=== PATIENT | male | born 1975 | race Caucasian/White ===

== ENCOUNTER 2016-10-09 10:46 | Observation (INO) | payer OTHER, SELFPAY ==
[2016-10-09 10:55] VITALS: BMI 24.4
[2016-10-09] MEDS ORDERED: Morphine 2 mg/ml ISec IVP STA (11:09)
[2016-10-09 11:18] LABS: ADD MANUAL DIFF? NO
[2016-10-09 11:33] LABS: BASO # 0.03 K/mm3 (0.0-2.0); BASO % 0.4 % (0.0-3.0); EOS % 0.2 % (1.5-5.0); GRAN % 74.5 % (50.0-68.0); HEMATOCRIT 41.5 % (42.0-52.0); LYMPH # 1.6 (1.2-3.4); MEAN CORPUSCULAR HEMOGLOBIN 30.8 pg (25.0-35.0); MEAN CORPUSCULAR HGB CONC 35.4 g/dl (31.0-37.0); MEAN PLATELET VOLUME 9.5 fl (7.0-11.0); MONO # 0.5 (0.1-0.6); MONO % 5.9 % (1.0-6.0); PLATELET COUNT 283 10^3/uL (120.0-450.0); RED CELL DISTRIBUTION WIDTH 12.9 % (11.5-14.5); WHITE BLOOD COUNT 8.3 10^3/ul (4.5-11.0)
[2016-10-09 11:37] LABS: ALB/GLOB RATIO 1.2 (1.1-1.8); ALKALINE PHOSPHATASE 90 U/L (38-133); ALT/SGPT 49 U/L (7-56); AST/SGOT 41 U/L (15-59); BILIRUBIN,TOTAL 0.8 mg/dL (0.2-1.3); BLOOD UREA NITROGEN 19 mg/dL (7-21); CALCIUM 9.2 mg/dL (8.4-10.5); CARBON DIOXIDE 23 mmol/L (21-33); CHLORIDE 104 mmol/L (98-107); GFR AFRICAN-AMERICAN > 60; GLUCOSE,RANDOM 119 mg/dL (70-110); LIPASE 35 U/L (23-300); MAGNESIUM 2.2 mg/dL (1.7-2.2); POTASSIUM 3.8 mmol/L (3.6-5.0); SODIUM 141 mmol/L (132-148); TOTAL PROTEIN 7.6 g/dL (5.8-8.3)
[2016-10-09 11:47] LABS: INR 0.97 (0.93-1.08); PARTIAL THROMBOPLASTIN TIME 26.1 Seconds (23.7-30.8)
[2016-10-09 11:59] LABS: TROPONIN I < 0.01 ng/mL
--- NOTE | 2016-10-09 12:02 | ED PDOC ---
Arrival/HPI - General Chief Complaint: Palpitations Time Seen by Provider: 10/09/16 11:01 Historian: Patient - History of Present Illness Narrative History of Present Illness (Text): 10/09/16 13:11 Satya Sanchez is a 41 year old male who presents to the emergency department complaining of non radiating chest pain since last night following alcohol and cocaine use. Describes quality as a squeezing sensation to the left chest. Patient also reports of epigastric abdominal pain associated with multiple bouts of hematemesis with clots. Patient states he has not been able to tolerate PO intake. Denies fever, chills, headache, dizziness, shortness of breath, diarrhea, urinary symptoms or any other complaints at this time. Time/Duration: Other (last night ) Symptom Onset: Gradual Severity Level: Mild Activities at Onset: Light Past Medical History - Provider Review Nursing Documentation Reviewed: Yes - Infectious Disease Hx of Infectious Diseases: None - Tetanus Immunization Tetanus Immunization: Unknown - Past Medical History Past Medical History: No Previous - Psychiatric Hx Depression: No Hx Emotional Abuse: No Hx Physical Abuse: No Hx Substance Use: Yes (cocaine) - Past Surgical History Past Surgical History: No Previous - Surgical History Other/Comment: Rt. Shoulder and abdominal - Suicidal Assessment Feels Threatened In Home Enviroment: No Family/Social History - Physician Review Nursing Documentation Reviewed: Yes Family/Social History: No Known Family HX Smoking Status: Unknown If Ever Smoked Hx Alcohol Use: Yes Frequency of alcohol use: Few days per week Hx Substance Use: Yes (cocaine) Hx Substance Use Treatment: No Allergies/Home Meds Allergies/Adverse Reactions: Allergies No Known Allergies Allergy (Verified 10/09/16 10:55) Home Medications: Home Meds Medication Instructions Recorded Confirmed No Known Home Med 10/09/16 10/09/16 Review of Systems - Physician Review All systems were reviewed & negative as marked: Yes - Review of Systems Constitutional: Normal. absent: Fatigue, Fevers Respiratory: absent: SOB, Cough, Sputum Cardiovascular: Chest Pain Gastrointestinal: Abdominal Pain (epigastric pain ), Nausea, Vomiting, Hematemesis. absent: Diarrhea Genitourinary Male: Normal. absent: Dysuria Musculoskeletal: Normal Neurological: Normal. absent: Headache, Dizziness Psychiatric: Normal Physical Exam Vital Signs Reviewed: Yes Vital Signs Temp Pulse Resp BP Pulse Ox 10/09/16 13:37 98.6 F 76 18 133/75 97 10/09/16 12:59 97 H 18 130/64 95 10/09/16 10:47 99 F 89 18 114/74 97 Temperature: Afebrile Blood Pressure: Normal Pulse: Regular Respiratory Rate: Normal Appearance: Positive for: Comfortable Pain Distress: None Mental Status: Positive for: Alert and Oriented X 3 - Systems Exam Head: Present: Atraumatic, Normocephalic Pupils: Present: PERRL Conjunctiva: Present: Normal Respiratory/Chest: Present: Clear to Auscultation, Good Air Exchange. No: Respiratory Distress, Accessory Muscle Use Cardiovascular: Present: Regular Rate and Rhythm, Normal S1, S2. No: Murmurs Abdomen: Present: Tenderness (epigastric tenderness ), Normal Bowel Sounds. No : Distention, Peritoneal Signs, Rebound, Guarding Upper Extremity: Present: Normal Inspection. No: Cyanosis, Edema Lower Extremity: Present: Normal Inspection. No: Edema Neurological: Present: GCS=15, CN II-XII Intact, Speech Normal Skin: Present: Warm, Dry, Normal Color. No: Rashes Psychiatric: Present: Alert, Oriented x 3, Normal Insight, Normal Concentration Medical Decision Making ED Course and Treatment: 10/09/16 12:02 Impression: A 41 year old male who presents to the emergency department complaining of chest pain and hematemesis s/p cocaine and alcohol use last night. Differential Diagnosis include but are not limited to: cocaine associated chest pain. Plan: -- EKG -- Labs -- Drug screen -- Morphine -- Zofran -- Protonix -- Urinalysis -- Reassess and disposition Progress Notes: 10/09/16 12:03 EKG interpreted by me: NSR @ 85 bpm. Normal [place]. Normal Interval. Chest X-ray interpreted by me: No acute findings. Patient improved with Morphine IV and Protonix IV. I discussed case with Dr. Plummer who will admit patient to the hospitalist service under observation. - Lab Interpretations Lab Results: 10/09/16 11:17 10/09/16 11:17 Lab Results 10/09/16 11:17: Sodium 141, Potassium 3.8, Chloride 104, Carbon Dioxide 23, Anion Gap 18, BUN 19, Creatinine 1.0, Est GFR ( Amer) > 60, Est GFR (Non- Af Amer) > 60, Random Glucose 119 H, Calcium 9.2, Magnesium 2.2, Total Bilirubin 0.8, AST 41, ALT 49, Alkaline Phosphatase 90, Lactate Dehydrogenase 512, Total Creatine Kinase 227, Troponin I < 0.01, Total Protein 7.6, Albumin 4.1, Globulin 3.5, Albumin/Globulin Ratio 1.2, Lipase 35 10/09/16 11:17: PT 10.5, INR 0.97, APTT 26.1 10/09/16 11:17: WBC 8.3, RBC 4.77, Hgb 14.7, Hct 41.5 L, MCV 87.0, MCH 30.8, MCHC 35.4, RDW 12.9, Plt Count 283, MPV 9.5, Gran % 74.5 H, Lymph % (Auto) 19.0 L, [place] % (Auto) 5.9, Eos % (Auto) 0.2 L, Baso % (Auto) 0.4, Gran # 6.20, Lymph # 1.6, [place] # 0.5, Eos # 0.0, Baso # 0.03 I have reviewed the lab results: Yes Interpretation: All labs normal - RAD Interpretation Radiology Orders: 10/09/16 11:09 CHEST PORTABLE [RAD] Stat Director Digital: ED Physician - EKG Interpretation Interpreted by ED Physician: Yes Type: 12 lead EKG - Medication Orders Current Medication Orders: Multivitamins/Vitamin C 10 ml/Thiamine HCl 100 mg/ Folic Acid 1 mg/ Sodium Chloride 1,011.2 mls @ 100 mls/hr IV .Q10H7M ONE Stop: 10/09/16 23:05 Lorazepam (Ativan) 1 mg IVP Q4H PRN; Protocol PRN Reason: Anxiety Ondansetron HCl (Zofran Inj) 4 mg IVP Q4H PRN PRN Reason: Nausea/Vomiting Pantoprazole Sodium (Protonix Inj) 40 mg IVP Q12 DAI Discontinued Medications Morphine Sulfate (Morphine) 2 mg IVP STAT STA Stop: 10/09/16 11:10 Last Admin: 10/09/16 11:18 Dose: 2 mg Ondansetron HCl (Zofran Inj) 4 mg IVP STAT STA Stop: 10/09/16 11:11 Last Admin: 10/09/16 11:18 Dose: 4 mg Pantoprazole Sodium (Protonix Inj) 80 mg IVP STAT STA Stop: 10/09/16 11:11 Last Admin: 10/09/16 11:18 Dose: 80 mg - Eliseibe Statement The provider has reviewed the documentation as recorded by the Tigre Navarro Provider Attestation: All medical record entries made by the Tigre were at my direction and personally dictated by me. I have reviewed the chart and agree that the record accurately reflects my personal performance of the history, physical exam, medical decision making, and the department course for this patient. I have also personally directed, reviewed, and agree with the discharge instructions and disposition. Disposition/Present on Arrival - Present on Arrival Any Indicators Present on Arrival: No History of DVT/PE: No History of Uncontrolled Diabetes: No Urinary Catheter: No History of Decub. Ulcer: No History Surgical Site Infection Following: None - Disposition Have Diagnosis and Disposition been Completed?: Yes Diagnosis: GI bleed, Cocaine abuse, Alcohol abuse, Chest pain Disposition: HOSPITALIZED Disposition Time: 12:43 Patient Plan: Observation Condition: FAIR
[2016-10-09] MEDS ORDERED: Multivitamin (MVI) 10 ML, Thiamine 100 MG, Folic Acid 1 MG in Sodium Chloride 0.9% 1,00... IV ONE (12:59)
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
--- NOTE | 2016-10-09 16:04 | RAD ---
HISTORY: chest pain COMPARISON: Comparison chest 03/27/2013. GoNo prior. FINDINGS: LUNGS: No active pulmonary disease. PLEURA: No significant pleural effusion identified, no pneumothorax apparent. CARDIOVASCULAR: Normal. OSSEOUS STRUCTURES: No significant abnormalities. VISUALIZED UPPER ABDOMEN: Normal. OTHER FINDINGS: None. IMPRESSION: No active disease.
--- NOTE | 2016-10-09 18:42 | CON ---
DATE: 10/09/2016 REASON FOR CONSULTATION: Chest pain. HISTORY OF PRESENT ILLNESS: The patient is a 41-year-old male who is a smoker, drinker and admitted to cocaine abuse. He presents because of chest discomfort as well as nasal bleeding from th e left nostril. The patient did also report vomiting with blood earlier. The patient is unaware of any prior cardiac history. MEDICATIONS: Ativan 1 mg intravenously q. 4 hours p.r.n., multivitamin infusion, Protonix 40 mg intr avenous twice a day and Zofran 4 mg intravenously q. 4 hours p.r.n. PHYSICAL EXAMINATION: GENERAL: The patient is a middle-aged male who does not appear to be in any distress. VITAL SIGNS: Blood pressure 133/75, heart rate 76, temperature 98.6, respiration 18. HEENT: Normocephalic. NECK: No JVD. CHEST: Clear. HEART: S1, S2 regular. ABDOMEN: Soft. EXTREMITIES: No edema. LABORATORY DATA: PT, PTT within normal limits. Hemoglobin and hematocrit 14.7 and 41.5, platelet co unt and white count are within normal limits. Alcohol level is 108. SMA-7 is within normal limits, except for glucose of 119. First troponin is negative. EKG revealed sinus rhythm. ASSESSMENT: 1. Chest pain, rule out myocardial infarction. 2. Rule out cocaine abuse. 3. Alcohol intoxication. 4. Epistaxis and possible gastrointestinal bleeding. RECOMMENDATIONS: Case was discussed with Dr. Washburn. Continue IV vitamin infusion, IV Protonix a nd p.r.n. IV Zofran. I will follow, repeat EKG and troponin, and obtain an echocardiogram. Shaheen Velez MD cc: [id number] TT: 10/09/2016 18:42:18 Confirmation # [id number] Dictation # [id number] julian
[2016-10-10 08:30] LABS: ADD MANUAL DIFF? NO
[2016-10-10 08:40] LABS: BASO # 0.03 K/mm3 (0.0-2.0); BASO % 0.4 % (0.0-3.0); EOS # 0.1 (0.0-0.7); EOS % 1.4 % (1.5-5.0); GRAN # 5.08 (1.4-6.5); GRAN % 66.1 % (50.0-68.0); LYMPH # 1.8 (1.2-3.4); LYMPH % 23.1 % (22.0-35.0); MEAN CELL VOLUME 87.1 fL (80.0-105.0); MEAN CORPUSCULAR HEMOGLOBIN 31.3 pg (25.0-35.0); MEAN PLATELET VOLUME 9.7 fl (7.0-11.0); MONO # 0.7 (0.1-0.6); PLATELET COUNT 243 10^3/uL (120.0-450.0); RED CELL DISTRIBUTION WIDTH 12.8 % (11.5-14.5); WHITE BLOOD COUNT 7.7 10^3/ul (4.5-11.0)
[2016-10-10 09:04] LABS: ALB/GLOB RATIO 1.1 (1.1-1.8); ALKALINE PHOSPHATASE 94 U/L (38-133); ALT/SGPT 53 U/L (7-56); AST/SGOT 35 U/L (15-59); BILIRUBIN,TOTAL 1.3 mg/dL (0.2-1.3); BLOOD UREA NITROGEN 16 mg/dL (7-21); CARBON DIOXIDE 27 mmol/L (21-33); CHLORIDE 100 mmol/L (98-107); CHOLESTEROL 199 mg/dL (130-200); GFR AFRICAN-AMERICAN > 60; GLUCOSE,RANDOM 93 mg/dL (70-110); MAGNESIUM 2.1 mg/dL (1.7-2.2); PHOSPHOROUS 3.1 mg/dL (2.5-4.5); SODIUM 138 mmol/L (132-148); TOTAL PROTEIN 7.4 g/dL (5.8-8.3)
--- NOTE | 2016-10-10 09:51 | CP.PCM.PN ---
<Lupe Pedraza - Last Filed: 10/10/16 10:41> Subjective - Date & Time of Evaluation Date of Evaluation: 10/10/16 Time of Evaluation: 09:46 - Subjective Subjective: Hospitalist Progress Note Patient seen and examined at bedside. There were no acute overnight events. He reports feeling much better today. He denies n/v/d, chest pain, SOB, pain, dysuria or hematuria. Objective - Vital Signs/Intake and Output Vital Signs (last 24 hours): Temp Pulse Resp BP Pulse Ox 98.3 F 69 19 131/97 H 97 10/10/16 05:50 10/10/16 05:50 10/10/16 05:50 10/10/16 05:50 10/10/16 05:50 Intake and Output: 10/10/16 10/10/16 06:59 18:59 Intake Total 720 Balance 720 - Medications Medications: Current Medications Lorazepam (Ativan) 1 mg IVP Q4H PRN; Protocol PRN Reason: Anxiety Last Admin: 10/09/16 21:09 Dose: 1 mg Ondansetron HCl (Zofran Inj) 4 mg IVP Q4H PRN PRN Reason: Nausea/Vomiting Pantoprazole Sodium (Protonix Inj) 40 mg IVP Q12 DAI Last Admin: 10/10/16 09:25 Dose: 40 mg - Labs Labs: 10/10/16 06:30 10/10/16 07:00 PT 10.5 Seconds (9.9-11.8) 10/09/16 11:17 INR 0.97 (0.93-1.08) 10/09/16 11:17 APTT 26.1 Seconds (23.7-30.8) 10/09/16 11:17 - Constitutional Appears: No Acute Distress - Head Exam Head Exam: ATRAUMATIC, NORMAL INSPECTION, NORMOCEPHALIC - Eye Exam Eye Exam: Normal appearance, PERRL Pupil Exam: NORMAL ACCOMODATION - ENT Exam ENT Exam: Mucous Membranes Moist - Respiratory Exam Respiratory Exam: Clear to Ausculation Bilateral, Wheezes, NORMAL BREATHING PATTERN. absent: Rales, Rhonchi, Stridor - Cardiovascular Exam Cardiovascular Exam: REGULAR RHYTHM, +S1, +S2. absent: Gallop, Rubs - GI/Abdominal Exam GI & Abdominal Exam: Soft, Normal Bowel Sounds. absent: Rigid, Tenderness, Mass , Rebound - Extremities Exam Extremities Exam: Normal Inspection. absent: Calf Tenderness, Pedal Edema - Neurological Exam Neurological Exam: Alert, Awake, CN II-XII Intact, Oriented x3 - Psychiatric Exam Psychiatric exam: Normal Affect, Normal Mood - Skin Skin Exam: Dry, Intact, Normal Color, Warm Assessment and Plan - Assessment and Plan (Free Text) Assessment: This is a 41Y M with no PMH admitted for chest pain and hematemesis. Plan: 1. Chest pain r/o ACS - UDS pending - Trop neg x 3 - TSH normal - Lipid panel showed mildly elevated triglyceride - Echo pending - Cardiology Consulted 2. Hematemesis - Hgb stable (15) - GI consulted- will do EGD in AM - NPO@ midnight - Continue protonix and zofran prn 3. EtOH abuse - Ativan prn - CIWA protocol - Seizure precaution - Aspiration precaution GI ppx: Protonix DVT ppx: SCDs Dispo: Plan for d/c after EGD depending on results Case seen, reviewed and discussed with attending. Rose Pedraza PGY1 <Fernanda Washburn - Last Filed: 10/10/16 13:59> Objective - Vital Signs/Intake and Output Vital Signs (last 24 hours): Temp Pulse Resp BP Pulse Ox 98.1 F 61 16 123/82 97 10/10/16 12:00 10/10/16 12:00 10/10/16 12:00 10/10/16 12:00 10/10/16 05:50 Intake and Output: 10/10/16 10/10/16 06:59 18:59 Intake Total 720 Balance 720 - Medications Medications: Current Medications Lorazepam (Ativan) 1 mg IVP Q4H PRN; Protocol PRN Reason: Anxiety Last Admin: 10/09/16 21:09 Dose: 1 mg Ondansetron HCl (Zofran Inj) 4 mg IVP Q4H PRN PRN Reason: Nausea/Vomiting Pantoprazole Sodium (Protonix Inj) 40 mg IVP Q12 DAI Last Admin: 10/10/16 09:25 Dose: 40 mg - Labs Labs: 10/10/16 06:30 10/10/16 07:00 PT 10.5 Seconds (9.9-11.8) 10/09/16 11:17 INR 0.97 (0.93-1.08) 10/09/16 11:17 APTT 26.1 Seconds (23.7-30.8) 10/09/16 11:17 Attending/Attestation - Attestation I have personally seen and examined this patient.: Yes I have fully participated in the care of the patient.: Yes I have reviewed all pertinent clinical information, including history, physical exam and plan: Yes Notes (Text): 10/10/16 13:43 attending note; Patient seen and examined with resident in ER bed 4. Patient is a 41-year-old male with a past medical history of alcohol abuse, cocaine use is admitted with chest pain and palpitation. Patient with history of alcohol abuse. Cessation is strongly advised. Cardiac enzymes 3 negative. H&H stable. GI/cardiology evaluation appreciated. on clear liquid diet. npo past midnight for EGD tomorrow. continue protonix. Complete alcohol cessation is advised. cocaine abuse cessation is strongly advised. Upon discharge the patient will follow-up with [facility] clinic. 10/10/16 13:55 10/10/16 13:59
--- NOTE | 2016-10-10 11:21 | CARD ---
APPROVED REPORT EKG Measurement Heart [id number] <Conclusion> Normal sinus rhythm Normal ECG
[2016-10-10 11:25] LABS: URINE APPEARANCE CLEAR (CLEAR); URINE BILIRUBIN NEGATIVE (NEGATIVE); URINE BLOOD NEGATIVE (NEGATIVE); URINE COLOR YELLOW (YELLOW); URINE GLUCOSE (UA) NEGATIVE (NEGATIVE); URINE KETONE 15 mg/dL (NEGATIVE); URINE LEUKOCYTE ESTERASE NEGATIVE Leu/uL (NEGATIVE); URINE PROTEIN NEGATIVE mg/dL (<30 mg/dL)
--- NOTE | 2016-10-10 13:42 | PN ---
DATE: 10/10/2016 The patient is awake, alert, ate breakfast without issues. No more chest pain noted. PHYSICAL EXAMINATION: VITAL SIGNS: Blood pressure is 131/97, heart rate is in the 80s, normal sinus rhythm. The patient i s afebrile. NECK: Negative JVD. LUNGS: Without rales. HEART: Revealed S1, S2. EXTREMITIES: Without edema. LABORATORIES: Reveals a urine that is positive for cocaine. Hemoglobin is 15. Chemistries: Tropon ins are negative x 3. EKG shows no acute changes. IMPRESSION: 1. Atypical chest pain, which is now resolved. 2. Cocaine abuse. 3. Alcohol abuse. 4. Epistaxis. Given these findings, there is no evidence for acute coronary syndrome. No arrhythmias noted. I have discussed with the patient about the need to stop his substance abuse. We will discontinue te lemetry today. No further cardiac workup. Will sign off on the case today. Guillermo Fisher MD cc: [id number] TT: 10/10/2016 13:42:05 Confirmation # [id number] Dictation # [id number] en
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
--- NOTE | 2016-10-11 01:39 | CON ---
DATE: 10/10/2016 ADDENDUM: This is an addendum to the GI consultation report dictated by Tania Deshpande. Discussed also with Dr. Washburn. HISTORY OF PRESENT ILLNESS: The patient has a history of Cocaine, history of ETOH abuse. The patient did have episodes of vomiting including an episode of coffee ground material. PHYSICAL EXAMINATION: ABDOMEN: Soft. There is minimal tenderness in the epigastric area. Labs reviewed. The patient is scheduled for upper GI endoscopy in the a.m. Monitor for results. Thank you very much for allowing us to participate in the care of this patient. Wily Plummer MD cc: [id number] TT: 10/11/2016 01:39:10 Confirmation # [id number] Dictation # [id number] julian DAVIS
[2016-10-11 06:24] VITALS: O2SAT 98
[2016-10-11 06:58] LABS: ADD MANUAL DIFF? NO
[2016-10-11 07:00] LABS: BASO # 0.04 K/mm3 (0.0-2.0); BASO % 0.6 % (0.0-3.0); EOS # 0.1 (0.0-0.7); EOS % 2.2 % (1.5-5.0); GRAN # 3.61 (1.4-6.5); GRAN % 56.6 % (50.0-68.0); HEMATOCRIT 44.4 % (42.0-52.0); LYMPH # 2.1 (1.2-3.4); LYMPH % 32.1 % (22.0-35.0); MEAN CELL VOLUME 86.4 fL (80.0-105.0); MEAN CORPUSCULAR HEMOGLOBIN 31.3 pg (25.0-35.0); MEAN CORPUSCULAR HGB CONC 36.3 g/dl (31.0-37.0); MEAN PLATELET VOLUME 9.7 fl (7.0-11.0); MONO # 0.5 (0.1-0.6); MONO % 8.5 % (1.0-6.0); PLATELET COUNT 254 10^3/uL (120.0-450.0); RED CELL DISTRIBUTION WIDTH 12.6 % (11.5-14.5); WHITE BLOOD COUNT 6.4 10^3/ul (4.5-11.0)
[2016-10-11 07:25] LABS: ALKALINE PHOSPHATASE 83 U/L (38-133); ALT/SGPT 48 U/L (7-56); AST/SGOT 40 U/L (15-59); BILIRUBIN,TOTAL 1.4 mg/dL (0.2-1.3); BLOOD UREA NITROGEN 13 mg/dL (7-21); CALCIUM 9.2 mg/dL (8.4-10.5); CARBON DIOXIDE 25 mmol/L (21-33); CHLORIDE 102 mmol/L (98-107); GFR AFRICAN-AMERICAN > 60; GLUCOSE,RANDOM 76 mg/dL (70-110); POTASSIUM 4.5 mmol/L (3.6-5.0); SODIUM 137 mmol/L (132-148); TOTAL PROTEIN 7.8 g/dL (5.8-8.3)
--- NOTE | 2016-10-11 09:47 | CP.PCM.DIS ---
<KeilaLupe - Last Filed: 10/11/16 12:51> Provider - Provider Date of Admission: 10/09/16 12:49 Attending physician: Fernanda Washburn MD Consults: Cardio: Phillip GI: Elian Time Spent in preparation of Discharge (in minutes): 35 Hospital Course - Lab Results Lab Results: Most Recent Lab Values WBC 6.4 10^3/ul (4.5-11.0) 10/11/16 06:45 RBC 5.14 10^6/uL (3.5-6.1) 10/11/16 06:45 Hgb 16.1 gm/dL (14.0-18.0) 10/11/16 06:45 Hct 44.4 % (42.0-52.0) 10/11/16 06:45 MCV 86.4 fL (80.0-105.0) 10/11/16 06:45 MCH 31.3 pg (25.0-35.0) 10/11/16 06:45 MCHC 36.3 g/dl (31.0-37.0) 10/11/16 06:45 RDW 12.6 % (11.5-14.5) 10/11/16 06:45 Plt Count 254 10^3/uL (120.0-450.0) 10/11/16 06:45 MPV 9.7 fl (7.0-11.0) 10/11/16 06:45 Gran % 56.6 % (50.0-68.0) 10/11/16 06:45 Lymph % (Auto) 32.1 % (22.0-35.0) 10/11/16 06:45 Lynn % (Auto) 8.5 % (1.0-6.0) H 10/11/16 06:45 Eos % (Auto) 2.2 % (1.5-5.0) 10/11/16 06:45 Baso % (Auto) 0.6 % (0.0-3.0) 10/11/16 06:45 Gran # 3.61 (1.4-6.5) 10/11/16 06:45 Lymph # 2.1 (1.2-3.4) 10/11/16 06:45 Lynn # 0.5 (0.1-0.6) 10/11/16 06:45 Eos # 0.1 (0.0-0.7) 10/11/16 06:45 Baso # 0.04 K/mm3 (0.0-2.0) 10/11/16 06:45 PT 10.5 Seconds (9.9-11.8) 10/09/16 11:17 INR 0.97 (0.93-1.08) 10/09/16 11:17 APTT 26.1 Seconds (23.7-30.8) 10/09/16 11:17 Sodium 137 mmol/L (132-148) 10/11/16 06:45 Potassium 4.5 mmol/L (3.6-5.0) 10/11/16 06:45 Chloride 102 mmol/L (98-107) 10/11/16 06:45 Carbon Dioxide 25 mmol/L (21-33) 10/11/16 06:45 Anion Gap 15 (10-20) 10/11/16 06:45 BUN 13 mg/dL (7-21) 10/11/16 06:45 Creatinine 1.0 mg/dL (0.5-1.4) 10/11/16 06:45 Est GFR ( Amer) > 60 10/11/16 06:45 Est GFR (Non-Af Amer) > 60 10/11/16 06:45 Random Glucose 76 mg/dL (70-110) 10/11/16 06:45 Hemoglobin A1c 5.0 % (4.2-6.5) 10/10/16 07:00 Calcium 9.2 mg/dL (8.4-10.5) 10/11/16 06:45 Phosphorus 3.1 mg/dL (2.5-4.5) 10/10/16 07:00 Magnesium 2.1 mg/dL (1.7-2.2) 10/10/16 07:00 Total Bilirubin 1.4 mg/dL (0.2-1.3) H 10/11/16 06:45 AST 40 U/L (15-59) 10/11/16 06:45 ALT 48 U/L (7-56) 10/11/16 06:45 Alkaline Phosphatase 83 U/L (38-133) 10/11/16 06:45 Lactate Dehydrogenase 512 U/L (333-699) 10/09/16 11:17 Total Creatine Kinase 227 U/L (35-230) 10/09/16 11:17 Troponin I < 0.01 ng/mL 10/10/16 00:45 Total Protein 7.8 g/dL (5.8-8.3) 10/11/16 06:45 Albumin 3.9 g/dL (3.0-4.8) 10/11/16 06:45 Globulin 4.0 gm/dL 10/11/16 06:45 Albumin/Globulin Ratio 1.0 (1.1-1.8) L 10/11/16 06:45 Triglycerides 167 mg/dL (35-160) H 10/10/16 07:00 Cholesterol 199 mg/dL (130-200) 10/10/16 07:00 LDL Cholesterol Direct 119 mg/dL (0-129) 10/10/16 07:00 HDL Cholesterol 36 mg/dL (29-60) 10/10/16 07:00 Lipase 35 U/L (23-300) 10/09/16 11:17 TSH 3rd Generation 2.32 mIU/mL (0.46-4.68) 10/10/16 07:00 Urine Color Yellow (YELLOW) 10/10/16 10:30 Urine Appearance Clear (CLEAR) 10/10/16 10:30 Urine pH 8.0 (4.7-8.0) 10/10/16 10:30 Ur Specific [place] 1.015 (1.005-1.035) 10/10/16 10:30 Urine Protein Negative mg/dL (<30 mg/dL) 10/10/16 10:30 Urine Glucose (UA) Negative mg/dL (NEGATIVE) 10/10/16 10:30 Urine Ketones 15 mg/dL (NEGATIVE) H 10/10/16 10:30 Urine Blood Negative (NEGATIVE) 10/10/16 10:30 Urine Nitrate Negative (NEGATIVE) 10/10/16 10:30 Urine Bilirubin Negative (NEGATIVE) 10/10/16 10:30 Urine Urobilinogen 2.0 E.U./dL (<1 E.U./dL) H 10/10/16 10:30 Ur Leukocyte Esterase Negative Dewayne/uL (NEGATIVE) 10/10/16 10:30 Urine Opiates Screen Negative (NEGATIVE) 10/10/16 10:30 Urine Methadone Screen Negative (NEGATIVE) 10/10/16 10:30 Ur Barbiturates Screen Negative (NEGATIVE) 10/10/16 10:30 Ur Phencyclidine Scrn Negative (NEGATIVE) 10/10/16 10:30 Ur Amphetamines Screen Negative (NEGATIVE) 10/10/16 10:30 U Benzodiazepines Scrn Negative (NEGATIVE) 10/10/16 10:30 U Oth Cocaine Metabols Positive (NEGATIVE) H 10/10/16 10:30 U Cannabinoids Screen Negative (NEGATIVE) 10/10/16 10:30 Alcohol, Quantitative 108 mg/dL (0-10) H 10/09/16 13:17 Blood Type A POSITIVE 10/09/16 14:06 Blood Type Confirm A POSITIVE 10/09/16 15:30 Antibody Screen Negative 10/09/16 14:06 BBK History Checked No verified bt 10/09/16 14:06 - Hospital Course Hospital Course: This is a 41y male with no PMH who was admitted for chest pain secondary to cocaine and alcohol use. Cardiology was consulted. Patient had negative troponin x 3 and his chest pain resolved. Echo was done. Report is still pending and will call patient when results are in. The patient also reported having hematemesis upon admission. His Hgb was normal and stable throughout stay. He did not have any episodes of nausea or vomiting since admission. GI was consulted. An EGD was done which showed chronic gastritis and duodenitis. The patient will be discharged home with Protonix 40mg x 10 days as well as a multivitamin for 10 days. He was counseled on drug and alcohol cessation. He will follow up in 1 week with [facility] outpatient clinic. - Date & Time of H&P Date of H&P: 10/09/16 Time of H&P: 14:30 Discharge Exam - Head Exam Head Exam: ATRAUMATIC, NORMAL INSPECTION, NORMOCEPHALIC - Eye Exam Eye Exam: Normal appearance Pupil Exam: NORMAL ACCOMODATION - ENT Exam ENT Exam: Mucous Membranes Moist - Respiratory Exam Respiratory Exam: Clear to PA & Lateral, NORMAL BREATHING PATTERN, UNREMARKABLE. absent: Rales, Rhonchi, Wheezes - Cardiovascular Exam Cardiovascular Exam: REGULAR RHYTHM, +S1, +S2. absent: Gallop, Rubs, Systolic Murmur - GI/Abdominal Exam GI & Abdominal Exam: Normal Bowel Sounds, Soft, Unremarkable. absent: Mass, Rebound, Rigid, Tenderness - Extremities Exam Extremities exam: normal inspection - Neurological Exam Neurological exam: Alert, CN II-XII Intact, Oriented x3 - Psychiatric Exam Psychiatric exam: Normal Affect, Normal Mood - Skin Skin Exam: Dry, Intact, Normal Color, Warm Discharge Plan - Discharge Medications Prescriptions: Mv-Min/Folic/Vit K/Lycop/Coq10 [Daily Multivitamin Capsule] 1 each PO DAILY #10 capsule Pantoprazole Sodium [Protonix] 40 mg PO DAILY #10 ect - Follow Up Plan Condition: FAIR Disposition: HOME/ ROUTINE Instructions: Chest Pain (DC), Gastritis (DC), Cocaine Abuse (DC), Upper Endoscopy (DC) Additional Instructions: 1. Please follow up with [facility] Outpatient Clinic on MondayOctober 18 at 9am. 2. Will inform patient of Echocardiogram results once they are in. 3. Protonix 40mg given for 10 days for gastritis. 4. Please take multivitamin daily for 10 days. Patient can get more multivitamin over the counter. Clinical Quality Measures - Date & Time of Discharge Summary Date of Discharge Summary: 10/11/16 Time of Discharge Summary: 12:53 <Fernanda Washburn - Last Filed: 10/12/16 15:49> Provider - Provider Date of Admission: 10/09/16 12:49 Attending physician: Fernanda Washburn MD Hospital Course - Lab Results Lab Results: Most Recent Lab Values WBC 6.4 10^3/ul (4.5-11.0) 10/11/16 06:45 RBC 5.14 10^6/uL (3.5-6.1) 10/11/16 06:45 Hgb 16.1 gm/dL (14.0-18.0) 10/11/16 06:45 Hct 44.4 % (42.0-52.0) 10/11/16 06:45 MCV 86.4 fL (80.0-105.0) 10/11/16 06:45 MCH 31.3 pg (25.0-35.0) 10/11/16 06:45 MCHC 36.3 g/dl (31.0-37.0) 10/11/16 06:45 RDW 12.6 % (11.5-14.5) 10/11/16 06:45 Plt Count 254 10^3/uL (120.0-450.0) 10/11/16 06:45 MPV 9.7 fl (7.0-11.0) 10/11/16 06:45 Gran % 56.6 % (50.0-68.0) 10/11/16 06:45 Lymph % (Auto) 32.1 % (22.0-35.0) 10/11/16 06:45 Lynn % (Auto) 8.5 % (1.0-6.0) H 10/11/16 06:45 Eos % (Auto) 2.2 % (1.5-5.0) 10/11/16 06:45 Baso % (Auto) 0.6 % (0.0-3.0) 10/11/16 06:45 Gran # 3.61 (1.4-6.5) 10/11/16 06:45 Lymph # 2.1 (1.2-3.4) 10/11/16 06:45 Lynn # 0.5 (0.1-0.6) 10/11/16 06:45 Eos # 0.1 (0.0-0.7) 10/11/16 06:45 Baso # 0.04 K/mm3 (0.0-2.0) 10/11/16 06:45 PT 10.5 Seconds (9.9-11.8) 10/09/16 11:17 INR 0.97 (0.93-1.08) 10/09/16 11:17 APTT 26.1 Seconds (23.7-30.8) 10/09/16 11:17 Sodium 137 mmol/L (132-148) 10/11/16 06:45 Potassium 4.5 mmol/L (3.6-5.0) 10/11/16 06:45 Chloride 102 mmol/L (98-107) 10/11/16 06:45 Carbon Dioxide 25 mmol/L (21-33) 10/11/16 06:45 Anion Gap 15 (10-20) 10/11/16 06:45 BUN 13 mg/dL (7-21) 10/11/16 06:45 Creatinine 1.0 mg/dL (0.5-1.4) 10/11/16 06:45 Est GFR ( Amer) > 60 10/11/16 06:45 Est GFR (Non-Af Amer) > 60 10/11/16 06:45 Random Glucose 76 mg/dL (70-110) 10/11/16 06:45 Hemoglobin A1c 5.0 % (4.2-6.5) 10/10/16 07:00 Calcium 9.2 mg/dL (8.4-10.5) 10/11/16 06:45 Phosphorus 3.1 mg/dL (2.5-4.5) 10/10/16 07:00 Magnesium 2.1 mg/dL (1.7-2.2) 10/10/16 07:00 Total Bilirubin 1.4 mg/dL (0.2-1.3) H 10/11/16 06:45 AST 40 U/L (15-59) 10/11/16 06:45 ALT 48 U/L (7-56) 10/11/16 06:45 Alkaline Phosphatase 83 U/L (38-133) 10/11/16 06:45 Lactate Dehydrogenase 512 U/L (333-699) 10/09/16 11:17 Total Creatine Kinase 227 U/L (35-230) 10/09/16 11:17 Troponin I < 0.01 ng/mL 10/10/16 00:45 Total Protein 7.8 g/dL (5.8-8.3) 10/11/16 06:45 Albumin 3.9 g/dL (3.0-4.8) 10/11/16 06:45 Globulin 4.0 gm/dL 10/11/16 06:45 Albumin/Globulin Ratio 1.0 (1.1-1.8) L 10/11/16 06:45 Triglycerides 167 mg/dL (35-160) H 10/10/16 07:00 Cholesterol 199 mg/dL (130-200) 10/10/16 07:00 LDL Cholesterol Direct 119 mg/dL (0-129) 10/10/16 07:00 HDL Cholesterol 36 mg/dL (29-60) 10/10/16 07:00 Lipase 35 U/L (23-300) 10/09/16 11:17 TSH 3rd Generation 2.32 mIU/mL (0.46-4.68) 10/10/16 07:00 Urine Color Yellow (YELLOW) 10/10/16 10:30 Urine Appearance Clear (CLEAR) 10/10/16 10:30 Urine pH 8.0 (4.7-8.0) 10/10/16 10:30 Ur Specific [place] 1.015 (1.005-1.035) 10/10/16 10:30 Urine Protein Negative mg/dL (<30 mg/dL) 10/10/16 10:30 Urine Glucose (UA) Negative mg/dL (NEGATIVE) 10/10/16 10:30 Urine Ketones 15 mg/dL (NEGATIVE) H 10/10/16 10:30 Urine Blood Negative (NEGATIVE) 10/10/16 10:30 Urine Nitrate Negative (NEGATIVE) 10/10/16 10:30 Urine Bilirubin Negative (NEGATIVE) 10/10/16 10:30 Urine Urobilinogen 2.0 E.U./dL (<1 E.U./dL) H 10/10/16 10:30 Ur Leukocyte Esterase Negative Dewayne/uL (NEGATIVE) 10/10/16 10:30 Urine Opiates Screen Negative (NEGATIVE) 10/10/16 10:30 Urine Methadone Screen Negative (NEGATIVE) 10/10/16 10:30 Ur Barbiturates Screen Negative (NEGATIVE) 10/10/16 10:30 Ur Phencyclidine Scrn Negative (NEGATIVE) 10/10/16 10:30 Ur Amphetamines Screen Negative (NEGATIVE) 10/10/16 10:30 U Benzodiazepines Scrn Negative (NEGATIVE) 10/10/16 10:30 U Oth Cocaine Metabols Positive (NEGATIVE) H 10/10/16 10:30 U Cannabinoids Screen Negative (NEGATIVE) 10/10/16 10:30 Alcohol, Quantitative 108 mg/dL (0-10) H 10/09/16 13:17 Blood Type A POSITIVE 10/09/16 14:06 Blood Type Confirm A POSITIVE 10/09/16 15:30 Antibody Screen Negative 10/09/16 14:06 BBK History Checked No verified bt 10/09/16 14:06 Attending/Attestation - Attestation I have personally seen and examined this patient.: Yes I have fully participated in the care of the patient.: Yes I have reviewed all pertinent clinical information, including history, physical exam and plan: Yes Notes (Text): 10/12/16 15:48 attending note; Patient seen and examined with resident. Patient is a 41-year-old male with a past medical history of alcohol abuse, cocaine use is admitted with chest pain and palpitation. Patient with history of alcohol abuse. Cessation is strongly advised. Cardiac enzymes 3 negative. H&H stable. GI/cardiology evaluation appreciated. s/p EGD today. EGD showed gastritis and duodenitis. continue po protonix. Complete alcohol cessation is advised. cocaine abuse cessation is strongly advised. Upon discharge the patient will follow-up with [facility] clinic.
[2016-10-11 11:14] VITALS: TEMP 98.2
[2016-10-11] MEDS ORDERED: Sodium Chloride 0.9% 1,000 ML IV SCH (11:30)
[2016-10-11] MEDS ORDERED: Propofol 10 mg/ml Inj (20 ML) ONE (11:39)
[2016-10-11 12:25] VITALS: RESP 16
[2016-10-11 12:39] VITALS: BP 111/70
[2016-10-11 16:27] VITALS: PULSE 65
--- NOTE | 2016-10-11 20:02 | CARD ---
APPROVED REPORT EXAM: Two-dimensional and M-mode echocardiogram with Doppler and color Doppler. INDICATION Chest Pain 2D DIMENSIONS Left Atrium (2D)2.9 (1.6-4.0cm)IVSd0.9 (0.7-1.1cm) LVDd4.3 (3.9-5.9cm)PWd0.8 (0.7-1.1cm) LVDs3.1 (2.5-4.0cm)FS (%) 28.5 % LVEF (%)55.2 (>50%) M-Mode DIMENSIONS Aortic Root2.80 (2.2-3.7cm)Aortic Cusp Exc.1.70 (1.5-2.0cm) Aortic Valve AoV Peak Qqchuyth197.0cm/Nieves Peak GR.8mmHg Mitral Valve MV E Udzxfjwl93.1cm/sMV A Szvypoag73.4cm/sE/A ratio1.5 TDI E/Lateral E'0.0E/Medial E'0.0 Tricuspid Valve TR Peak Lztzdnyg888li/sRAP [id number] Peak Gr.7mmHg [id number] LEFT VENTRICLE The left ventricle is normal size. There is normal left ventricular wall thickness. The left ventricular function is normal. The left ventricular ejection fraction is within the normal range. There is normal LV segmental wall motion. The left ventricular diastolic function is normal. RIGHT VENTRICLE The right ventricle is normal size. There is normal right ventricular wall thickness. The right ventricular systolic function is normal. ATRIA The left atrium size is normal. The right atrium size is normal. AORTIC VALVE The aortic valve is normal in structure. No aortic regurgitation is present. MITRAL VALVE The mitral valve is normal in structure. There is no mitral valve regurgitation noted. TRICUSPID VALVE The tricuspid valve is normal in structure. There is no tricuspid valve regurgitation noted. PULMONIC VALVE There is trace pulmonic valvular regurgitation. GREAT VESSELS The aortic root is normal in size. The IVC is normal in size and collapses >50% with inspiration. PERICARDIAL EFFUSION There is no pericardial effusion. <Conclusion> The left ventricle is normal size. There is normal left ventricular wall thickness. The left ventricular function is normal. The left ventricular ejection fraction is within the normal range. There is normal LV segmental wall motion. The left ventricular diastolic function is normal.
== END 2016-10-11 16:37 | disposition home or self-care (01) ==
LOC: ED 10:46 → ERH 12:49 → 2RSO 14:01
PROVIDERS: ADMIT Internal Medicine; ATTEND Internal Medicine
DX: R07.89 Other chest pain (principal); F14.10 Cocaine abuse, uncomplicated; F10.129 Alcohol abuse with intoxication, unspecified; K92.0 Hematemesis; R04.0 Epistaxis; K29.80 Duodenitis without bleeding; K29.50 Unspecified chronic gastritis without bleeding; B96.81 Helicobacter pylori [H. pylori] as the cause of diseases classified elsewhere; R00.2 Palpitations; F17.210 Nicotine dependence, cigarettes, uncomplicated
CPT/HCPCS: 36415; 43239; 71010; 80053; 80061; 80320; 80324; 80345; 80346; 80349; 80353; 80358; 80361; 81003; 82550; 83036; 83615; 83690; 83735; 83992; 84100; 84443; 84484; 85025; 85610; 85730; 86850; 86900; 88305; 88342; 93005; 93306; 96374; 96375; 96376; 99285; C9113; G0378; J2001; J2060; J2270; J2405; J2704; J3411; J7040

== ENCOUNTER 2018-10-30 05:53 | Emergency (ER) | payer SELFPAY ==
[2018-10-30 05:59] VITALS: BMI 21.4
[2018-10-30] MEDS ORDERED: TDAP Vaccine 0.5 mL Syr IM ONE (07:17)
[2018-10-30] MEDS ORDERED: Emtricitabine-Tenofovir 200 mg-300 mg Tab PO STA (07:17)
[2018-10-30 07:43] VITALS: BP 113/71; PULSE 80; TEMP 98; O2SAT 99
[2018-10-30 07:46] VITALS: RESP 19
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
== END 2018-10-30 07:46 | disposition home or self-care (01) ==
LOC: ED 05:53
DX: Z03.89 Encounter for observation for other suspected diseases and conditions ruled out (principal); Y04.0XXA Assault by unarmed brawl or fight, initial encounter; Z23 Encounter for immunization